=== PATIENT | female | born 1980 | race Caucasian/White ===

== ENCOUNTER 2017-06-07 10:03 | Emergency (ER) | payer BC ==
[~2017-06-07] VITALS: Ht 167.6 cm; Wt 63.0 kg
[~2017-06-07 10:03] MED LIST: CARB200T16 PO; ULTR50TA PO; VENL75 PO
[2017-06-07 10:06] VITALS: BP 142/67; PULSE 92; RESP 16; TEMP 97.4; O2SAT 99
[2017-06-07] MEDS ORDERED: SODIUM CHLOR 0.9% 1000 ML INJ 1,000 ML IV ONE (10:12)
[2017-06-07] MEDS ORDERED: KETOROLAC TROMETHAMINE 30 MG/ML (IVP) VIAL IV PUSH ONE (10:15)
[2017-06-07] MEDS ORDERED: PROCHLORPERAZINE INJ 10 MG/2 ML VIAL IVP ONE (10:15)
[2017-06-07] MEDS ORDERED: diphenhydrAMINE HCL 50 MG/ML VIAL IVP ONE (10:15)
--- NOTE | 2017-06-07 10:20 | PD ---
HPI Chief Complaint: Headache Time Seen by Provider: 10:10 Travel History International Travel<30 days: No Contact w/Intl Traveler<30days: No Traveled to known affect area: No History of Present Illness HPI 37-year-old female presents with migraine with nonbloody emesis. She states she has history of migraines but Imitrex is not helping this one. She states she has had normal CT brain imaging in the past. She denies any other concurrent complaints other than nasal congestion. She denies specifically any trauma, fever or other concerns. Quality is throbbing. Severity is severe. She denies thunderclap onset. Duration is couple of days. PFSH Past Medical History Hx Anticoagulant Therapy: No Depression: Yes Diabetes: No Diminished Hearing: No Musculoskeletal: Yes (chronic left shoulder pain) Migraines: Yes ?: Not Tubal Ligation: Yes Past Surgical History Tonsillectomy: Yes Social History Alcohol Use: No Tobacco Use: Yes (1 pk of cigs every 2-3 days) Substance Use: No (CURRENTLY DENIES) Allergies-Medications (Allergen,Severity, Reaction): Coded Allergies: codeine (Unverified Allergy, Mild, ITCHING, 06/07/17) Reported Meds & Prescriptions Reported Meds & Active Scripts Active Reported Imitrex (Sumatriptan Succinate) 100 Mg Tab 100 Mg PO ONCE PRN If a satisfactory response has not been obtained at 2 hours, a second dose may be administered Trazodone (Trazodone HCl) 50 Mg Tab 50 Mg PO HS Xanax (Alprazolam) 0.5 Mg Tab 0.5 Mg PO BID PRN Effexor (Venlafaxine HCl) 75 Mg Tab 75 Mg PO DAILY Review of Systems Except as stated in HPI: all other systems reviewed are Neg Physical Exam Narrative GENERAL: Well-nourished, well-developed patient. Well-appearing SKIN: Warm and dry. HEAD: Normocephalic and atraumatic. EYES: No injection or drainage. Pupils equal ENT: No nasal drainage noted. NECK: Supple, trachea midline. CARDIOVASCULAR: Regular rate and rhythm RESPIRATORY: Breath sounds equal bilaterally. No accessory muscle use. GASTROINTESTINAL: Abdomen soft, non-tender, nondistended. EXTREMITIES: No edema. NEUROLOGICAL: Awake and alert. Motor and sensory grossly within normal limits. Normal speech. Data Data Last Documented VS Vital Signs Date Time Temp Pulse Resp B/P (MAP) Pulse Ox O2 Delivery O2 Flow Rate FiO2 06/07/17 10:19 16 99 Room Air 06/07/17 10:06 97.4 92 142/67 (92) Orders Orders Ecg Monitoring (06/07/17 10:12) Iv Access Insert/Monitor (06/07/17 10:12) Prochlorperazine Inj (Compazine Inj) (06/07/17 10:15) Diphenhydramine Inj (Benadryl Inj) (06/07/17 10:15) Sodium Chlor 0.9% 1000 Ml Inj (Ns 1000 M (06/07/17 10:12) Ketorolac Inj (Toradol Inj) (06/07/17 10:15) Ed Discharge Order (06/07/17 11:54) [facility] Medical Decision Making Medical Screen Exam Complete: Yes Emergency Medical Condition: Yes Medical Record Reviewed: Yes (past history confirmed) Differential Diagnosis Migraine, tension, cluster Narrative Course Will dose with Benadryl, Compazine, Toradol, IV fluids and reevaluate Patient denies any new complaints and states that they are feeling better. Nursing staff informed me patient had multiple track moore noted on arms. These were inspected and no signs of abscess noted. Patient states the last time she injected it was at least a week ago. She states she is been using intermittently for 3 years. She states she has not had any fevers, neck, back pain or other concurrent complaints other than her typical migraine today. Lengthy discussion with patient and she is wanting to go home. She agrees to no further testing here and understands the importance that she needs to avoid all IV drug abuse and the risk and complications associated with this, all questions answered. Patient knows that follow up is incumbent on them and to return to the emergency room immediately if new or worsening symptoms develop. Patient given strict return precautions, vitals reviewed and are normal, agrees to further workup as an outpatient. Diagnosis Primary Impression: Cephalgia Qualified Codes: R51 - Headache Patient Instructions: General Instructions Additional Instructions: follow with primary tommorrow, return as needed, tylenol as needed, AVOID IV DRUG USE Med/Other Pt SpecificInfo: No Change to Meds Disposition: 01 DISCHARGE HOME Condition: Stable Nirmala Marmolejo MD Jun 07, 2017 10:20
[2017-06-07] MEDS ORDERED: IMIT100T PO (10:26)
[2017-06-07] MEDS ORDERED: TRAZ50TA12 PO (10:26)
[2017-06-07] MEDS ORDERED: VENL75TA PO (10:26)
[2017-06-07] MEDS ORDERED: ALPR.5 PO (10:26)
[2017-06-07 11:56] VITALS: RESP 16
[2017-06-07 12:22] VITALS: BP 133/70
== END 2017-06-07 12:24 | disposition home or self-care (01) ==
LOC: PHED 10:03
DX: R51 Headache (principal); F32.9 Major depressive disorder, single episode, unspecified; F17.210 Nicotine dependence, cigarettes, uncomplicated
CPT/HCPCS: 96374; 96375; 99284; J0780; J1200; J1885; J7030